=== PATIENT | male | born 1960 | race Caucasian/White ===

== ENCOUNTER → 2018-06-09 | Outpatient (CLI) | payer OTHER ==
--- NOTE | 2018-06-09 11:09 | RADIOLOGY IMAGING REPORT ---
FACILITY: [facility] PATIENT NAME: Victor Hugo Sargent : 1960 MR: [id number] V: [id number] EXAM DATE: ORDERING PHYSICIAN: LIBERTAD VILLARREAL TECHNOLOGIST: Location: [facility] [place] Patient: Victor Hugo Sargent : 1960 Visit/Account:[id number] Date of Sevice: 06/09/2018 TESTICULAR HISTORY: Right testicular pain, prostate enlargement COMPARISON: None. FINDINGS: Testes: Right testicle measures 5.1 x 2.5 x 3.9 cm. The left testicle measures 5 x 2.6 x 3.3 cm Sym metric and unremarkable blood flow documented by color and Duplex Doppler ultrasound. Epididymides: The head epididymis on the right measures 1.17 cm and contains a 8 mm cyst. The head e pididymis on the left measures 1.46 cm Blood flow is unremarkable in each epididymis by color Dopple r ultrasound. Hydrocele: Small on the left Varicocele: None. IMPRESSION: There is an 8 mm cyst had epididymis on the right Small left hydrocele Report Dictated By: Amy Hobson MD at 06/09/2018 11:03 AM Report E-Signed By: Amy Hobson MD at 06/09/2018 11:04 AM WSN:[email or web address]
--- NOTE | 2018-06-09 11:24 | RADIOLOGY IMAGING REPORT ---
FACILITY: [facility] PATIENT NAME: Victor Hugo Sargent : 1960 MR: [id number] V: [id number] EXAM DATE: ORDERING PHYSICIAN: LIBERTAD VILLARREAL TECHNOLOGIST: Location: [facility] Patient: Victor Hugo Sargent : 1960 Visit/Account:[id number] Date of Sevice: 06/09/2018 KIDNEYS EXAMINATION: Renal ultrasound. History: Prostate enlargement COMPARISON STUDIES: FINDINGS: Kidneys: Right kidney- 10.8 x 5.3 x 7.6 cm Left kidney- 10.5 x 4.5 x 5.2 cm Uniform and symmetric blood flow in each kidney by Doppler ultrasound. Hydronephrosis: none Resistive index on the right 0.58 and on the left 0.57 There is a 5.5 cm cyst projecting from the upper pole of the right kidney Bladder: Urinary bladder prevoid volume 117 mL. Post void residual 30 mL. Bilateral ureteral jets a re present. Prostate measures 5.6 x 5.4 x 5 cm Abdominal aorta and IVC: Aorta and IVC are patent by Doppler ultrasound. IMPRESSION: 5.5 cm upper pole right renal cyst Prostate gland is prominent measuring 5.6 x 5.4 x 5 cm Report Dictated By: Amy Hobson MD at 06/09/2018 11:11 AM Report E-Signed By: Amy Hobson MD at 06/09/2018 11:19 AM WSN:[email or web address]
== END ==
LOC: US 00:36
PROVIDERS: ATTEND Urology
DX: N43.2 Other hydrocele (principal); N50.3 Cyst of epididymis; N40.0 Benign prostatic hyperplasia without lower urinary tract symptoms; N28.1 Cyst of kidney, acquired
CPT/HCPCS: 76705; 76870